=== PATIENT | male | born 1995 | race African-American/Black ===

== ENCOUNTER 2016-12-27 15:21 | Emergency (ER) | payer BC ==
[~2016-12-27] VITALS: Ht 185.4 cm; Wt 150.0 kg
[2016-12-27 16:49] VITALS: BP 141/89
== END 2016-12-27 17:05 | disposition home or self-care (01) ==
LOC: EMS 15:22
DX: J40 Bronchitis, not specified as acute or chronic (principal); J06.9 Acute upper respiratory infection, unspecified; J02.9 Acute pharyngitis, unspecified
CPT/HCPCS: 99283

== ENCOUNTER 2017-01-10 10:37 | Emergency (ER) | payer BC ==
[~2017-01-10] VITALS: Ht 188 cm; Wt 136.4 kg
[2017-01-10 10:40] VITALS: BP 136/71
[2017-01-10] MEDS ORDERED: PROM5SYR2 PO (10:44)
== END 2017-01-10 12:15 | disposition home or self-care (01) ==
LOC: EMS 10:39
DX: Z76.0 Encounter for issue of repeat prescription (principal); R05 Cough
CPT/HCPCS: 99283

== ENCOUNTER 2017-01-14 23:08 | Emergency (ER) | payer BC ==
[~2017-01-14] VITALS: Ht 188 cm; Wt 136.0 kg
[~2017-01-14 23:08] MED LIST: PROM5SYR2 PO
[2017-01-14] MEDS ORDERED: D-ME118S13 PO (23:17)
[2017-01-15 00:45] VITALS: BP 131/82
[2017-01-15] MEDS ORDERED: KETOROLAC TROMETHAMINE 60 MG/2 ML VIAL IM ONE (01:15)
== END 2017-01-15 01:28 | disposition home or self-care (01) ==
LOC: EMS 23:09
DX: R05 Cough (principal); Z76.0 Encounter for issue of repeat prescription
CPT/HCPCS: 96372; 99283; J1885

== ENCOUNTER 2017-04-01 12:05 | Emergency (ER) | payer BC ==
[~2017-04-01] VITALS: Ht 188 cm; Wt 136.4 kg
[~2017-04-01 12:05] MED LIST changes: +D-ME118S13 PO; -PROM5SYR2 PO
[2017-04-01] MEDS ORDERED: POVIDONE-IODINE 10% 15 ML SOLUTION UD ONE (13:15)
[2017-04-01] MEDS ORDERED: HYDROmorphone 2 MG/ML SYRINGE IM ONE (13:30)
[2017-04-01] MEDS ORDERED: PROMETHAZINE HCL 50 MG/ML VIAL IM ONE (13:30)
[2017-04-01] MEDS ORDERED: POVIDONE-IODINE 10% 120 ML SOLUTION TP ONE (14:15)
[2017-04-01] MEDS ORDERED: HYDROCODONE/ACETAMINOPHEN 5-325 MG TABLET PO ONE (15:30)
[2017-04-01 16:15] VITALS: BP 134/85
== END 2017-04-01 17:10 | disposition home or self-care (01) ==
LOC: EMS 12:06
DX: S61.402D Unspecified open wound of left hand, subsequent encounter (principal); W34.09XD Accidental discharge from other specified firearms, subsequent encounter
CPT/HCPCS: 29105; 96372; 99284; J1170; J2550

== ENCOUNTER 2017-11-10 08:50 | Emergency (ER) | payer BC ==
[~2017-11-10] VITALS: Ht 188 cm; Wt 131.8 kg
[2017-11-10] MEDS ORDERED: BUPR1FIL3 SL (09:02)
[2017-11-10] MEDS ORDERED: KETOROLAC TROMETHAMINE 30 MG/ML VIAL IVP ONE (09:15)
[2017-11-10] MEDS ORDERED: ONDANSETRON HCL 4 MG/2 ML VIAL IVP ONE (09:15)
[2017-11-10] MEDS ORDERED: SODIUM CHLORIDE 0.9% 1,000 ML IV ONE ×2 (09:15→11:00)
[2017-11-10 09:40] LABS: BASOPHILS % (AUTO) 0.9 % (0.0-2.0); EOSINOPHILS % (AUTO) 3.6 % (1.0-6.0); HEMATOCRIT 47.5 % (41-53); HEMOGLOBIN 16.6 g/dL (13.5-17.5); LYMPHOCYTES # (AUTO) 3.1 K/uL (1.0-4.8); LYMPHOCYTES % (AUTO) 30.5 % (22.0-44.0); MEAN CORPUSCULAR HEMOGLOBIN 30.7 pg (26.0-34.0); MEAN CORPUSCULAR VOLUME 88 fL (80-100); MONOCYTES # (AUTO) 0.9 K/uL (0.1-1.0); NEUTROPHILS # (AUTO) 5.7 K/uL (1.8-7.7); PLATELET COUNT (AUTO) 393 K/uL (150-450); RED BLOOD CELL COUNT(AUTO) 5.42 MIL/uL (4.50-5.90); RED CELL DISTRIBUTION WIDTH 12.5 % (11.5-14.5)
[2017-11-10 09:51] LABS: ANION GAP 16 mmol/L (8-16); CALCIUM, TOTAL 9.5 mg/dL (8.8-10.5); CARBON DIOXIDE 25 mmol/L (22-29); CHLORIDE 99 mmol/L (98-107); CREATININE 0.98 mg/dL (0.60-1.30); GLOMERULAR FILTR. RATE CALC > 60 mL/min (>60); GLUCOSE,RANDOM 115 mg/dL (70-110); POTASSIUM 3.7 mmol/L (3.5-5.1); SODIUM SERUM 140 mmol/L (136-145); UREA NITROGEN, BLOOD 10 mg/dL (7-18)
[2017-11-10 09:59] LABS: ALANINE AMINOTRANSFERASE 85 U/L (12-78); ALKALINE PHOSPHATASE 99 U/L (46-116); ASPARTATE AMINOTRANSFERASE 32 U/L (15-37); BILIRUBIN,TOTAL 0.6 mg/dL (0.1-1.0); LIPASE 62 U/L (73-393); TOTAL PROTEIN, SERUM 8.8 g/dL (6.4-8.2)
[2017-11-10] MEDS: ACETAMINOPHEN 500 MG TABLET PO ONE ×2 (10:51→10:55)
[2017-11-10 11:19] LABS: AMPHET/METH SCREEN,URINE POSITIVE (NEGATIVE); BARBITURATE SCREEN, URINE NEGATIVE (NEGATIVE); BENZODIAZEPINES SCREEN,URINE POSITIVE (NEGATIVE); CANNABINOID SCREEN,URINE POSITIVE (NEGATIVE); COCAINE SCREEN,URINE NEGATIVE (NEGATIVE); METHADONE SCREEN, URINE NEGATIVE (NEGATIVE); OPIATE SCREEN,URINE POSITIVE (NEGATIVE)
[2017-11-10 11:21] LABS: APPEARANCE,URINE TURBID (CLEAR); GLUCOSE, URINE (UA) NEGATIVE (NEGATIVE); KETONES,URINE >=80 mg/dL (NEGATIVE); LEUKOCYTE ESTERASE ,URINE NEGATIVE (NEGATIVE); NITRATE,URINE NEGATIVE (NEGATIVE); OCCULT BLOOD,URINE LARGE (NEGATIVE); PH,URINE 7.5 (5.0-8.0); PROTEIN,URINE TRACE (NEGATIVE)
[2017-11-10 11:24] LABS: PHENCYCLIDINE SCREEN,URINE NEGATIVE (NEGATIVE)
[2017-11-10 11:27] LABS: BILIRUBIN,URINE PRELIM. POSITIVE (NEGATIVE)
[2017-11-10 11:28] LABS: BACTERIA,URINE None Seen /HPF (None Seen); RBC,URINE 26-50 /HPF (0-2); WBC,URINE None Seen /HPF (0-5)
[2017-11-10 13:19] VITALS: BP 132/70
== END 2017-11-10 13:27 | disposition home or self-care (01) ==
LOC: EMS 08:51
DX: N20.9 Urinary calculus, unspecified (principal); Z98.890 Other specified postprocedural states; Z79.899 Other long term (current) drug therapy
CPT/HCPCS: 36415; 74176; 80053; 80307; 81001; 83690; 85025; 96361; 96374; 96375; 99285; J1885; J2405; J7030

== ENCOUNTER 2020-06-23 16:00 | Emergency (ER) | payer BC, OTHER ==
[~2020-06-23] VITALS: Ht 188 cm; Wt 113.6 kg
[~2020-06-23 16:00] MED LIST changes: +BUPR1FIL3 SL; -D-ME118S13 PO
[2020-06-23 17:24] LABS: COVID AG,FIA SOURCE NASOPHARYNGEAL
[2020-06-23 17:50] VITALS: BP 148/76
[2020-06-23] MEDS ORDERED: IPRATROPIUM BROMIDE 0.5 MG/2.5 ML NEB SOLUTION NEB ONE (18:30)
[2020-06-23] MEDS ORDERED: ALBUTEROL SULFATE 2.5 MG/0.5 ML NEB SOLUTION NEB ONE (18:30)
== END 2020-06-23 18:55 | disposition home or self-care (01) ==
LOC: EMS 16:00
DX: J40 Bronchitis, not specified as acute or chronic (principal); F11.90 Opioid use, unspecified, uncomplicated; F12.90 Cannabis use, unspecified, uncomplicated; F13.10 Sedative, hypnotic or anxiolytic abuse, uncomplicated; Z20.828 Contact with and (suspected) exposure to other viral communicable diseases
CPT/HCPCS: 87426; 71045-TC; J7613

== ENCOUNTER 2022-06-29 22:22 | Emergency (ER) | payer OTHER ==
[~2022-06-29] VITALS: Ht 188 cm; Wt 115.0 kg
[2022-06-29] MEDS ORDERED: SODIUM CHLORIDE 0.9% 1,000 ML IV ONE (22:45)
[2022-06-29] MEDS ORDERED: ONDANSETRON HCL 4 MG/2 ML VIAL IVP ONE (22:45)
[2022-06-29 22:54] LABS: BASOPHILS % (AUTO) 0.4 % (0.0-2.0); EOSINOPHILS % (AUTO) 6.3 % (1.0-6.0); HEMOGLOBIN 13.6 g/dL (13.5-17.5); LYMPHOCYTES % (AUTO) 28.7 % (22.0-44.0); MEAN CORPUSCULAR HEMOGLOBIN 31.2 pg (26.0-34.0); MEAN CORPUSCULAR HGB CONC 33.9 G/dL (31.0-37.0); MEAN CORPUSCULAR VOLUME 92 fL (80-100); MONOCYTES # (AUTO) 0.7 K/uL (0.1-1.0); MONOCYTES % (AUTO) 9.9 % (2.0-9.0); NEUTROPHILS # (AUTO) 3.9 K/uL (1.8-7.7); NEUTROPHILS % (AUTO) 54.7 % (40.0-70.0); PLATELET COUNT (AUTO) 300 K/uL (150-450); RED BLOOD CELL COUNT(AUTO) 4.35 MIL/uL (4.50-5.90); RED CELL DISTRIBUTION WIDTH 12.9 % (11.5-14.5)
[2022-06-29 22:54] LABS: COVID AG,FIA SOURCE NASAL SWAB
[2022-06-29 23:04] LABS: ANION GAP 7 mmol/L (8-16); CALCIUM, TOTAL 9.2 mg/dL (8.8-10.5); CARBON DIOXIDE 31 mmol/L (22-29); CHLORIDE 100 mmol/L (98-107); CREATININE 0.96 mg/dL (0.60-1.30); GLUCOSE,RANDOM 85 mg/dL (70-110); POTASSIUM 4.1 mmol/L (3.5-5.1); SODIUM SERUM 138 mmol/L (136-145); UREA NITROGEN, BLOOD 9 mg/dL (7-18)
[2022-06-29 23:05] LABS: GLOMERULAR FILTR. RATE CALC > 60 mL/min (>60)
[2022-06-29 23:10] LABS: ALANINE AMINOTRANSFERASE 32 U/L (12-78); ALBUMIN 3.4 g/dL (3.4-5.0); ALKALINE PHOSPHATASE 71 U/L (46-116); ASPARTATE AMINOTRANSFERASE 28 U/L (15-37); BILIRUBIN,TOTAL 0.5 mg/dL (0.1-1.0); TOTAL PROTEIN, SERUM 7.6 g/dL (6.4-8.2)
[2022-06-29 23:11] LABS: ACETAMINOPHEN < 2 mcg/mL (10-30)
[2022-06-29 23:21] LABS: SALICYLATE < 0.2 mg/dL (2.8-20.0)
[2022-06-30 01:33] LABS: AMPHET/METH SCREEN,URINE NEGATIVE (NEGATIVE); BARBITURATE SCREEN, URINE NEGATIVE (NEGATIVE); BENZODIAZEPINES SCREEN,URINE POSITIVE (NEGATIVE); CANNABINOID SCREEN,URINE POSITIVE (NEGATIVE); COCAINE SCREEN,URINE NEGATIVE (NEGATIVE); METHADONE SCREEN, URINE NEGATIVE (NEGATIVE); OPIATE SCREEN,URINE NEGATIVE (NEGATIVE)
[2022-06-30 01:34] LABS: PHENCYCLIDINE SCREEN,URINE NEGATIVE (NEGATIVE)
[2022-06-30] MEDS ORDERED: ERYTHROMYCIN 0.5% 3.5 GM TUBE OPHTHALMIC OINTMENT OU ONE (01:45)
[2022-06-30 02:41] VITALS: BP 118/75
== END 2022-06-30 02:55 | disposition home or self-care (01) ==
LOC: EMS 22:22
DX: T40.411A Poisoning by fentanyl or fentanyl analogs, accidental (unintentional), initial encounter (principal); F11.10 Opioid abuse, uncomplicated; Z98.890 Other specified postprocedural states; Y92.89 Other specified places as the place of occurrence of the external cause; Z20.822 Contact with and (suspected) exposure to COVID-19
CPT/HCPCS: 99291; 96374; 96361; 87426; 80053; 85025; 36415; 93005; 80307; G0481; J2405; J7030; G0480 ×2

== ENCOUNTER 2022-09-01 10:54 | Emergency (ER) | payer OTHER ==
[~2022-09-01] VITALS: Ht 188 cm; Wt 136.4 kg
[2022-09-01 11:37] LABS: COVID AG,FIA SOURCE NASAL SWAB
[2022-09-01] MEDS ORDERED: OXYMETAZOLINE HCL 0.05% 15 ML NASAL SPRAY NASAL ONE (12:00)
[2022-09-01 12:11] LABS: INFLUENZA TYPE A NEGATIVE FOR TYPE A (NEGATIVE); INFLUENZA TYPE B NEGATIVE FOR TYPE B (NEGATIVE)
[2022-09-01] MEDS ORDERED: BENZ-70 PO (14:14)
[2022-09-01 14:45] VITALS: BP 128/72
== END 2022-09-01 14:46 | disposition home or self-care (01) ==
LOC: EMS 11:02
DX: J40 Bronchitis, not specified as acute or chronic (principal); F11.90 Opioid use, unspecified, uncomplicated; Z98.890 Other specified postprocedural states; Z20.822 Contact with and (suspected) exposure to COVID-19
CPT/HCPCS: 71045; 87804; 99284